=== PATIENT | female | born 1965 | race Hispanic/Latino ===

== ENCOUNTER 2017-11-30 14:32 | Emergency (ER) | payer BC ==
[2017-11-30] MEDS ORDERED: SODIUM CHLORIDE 0.9% 1000ML 1,000 ML IV ONE ×2 (14:52→15:45)
[2017-11-30 15:08] LABS: APPEARANCE,URINE Clear (CLEAR); BASOPHILS % (AUTO) 0.7 % (0.0-5.0); BILIRUBIN,URINE Negative (NEGATIVE); COLOR,URINE Yellow (YELLOW); EOSINOPHILS % (AUTO) 2.2 % (0.0-8.0); GLUCOSE, URINE (UA) >=1000 mg/dL (NEGATIVE); HEMATOCRIT 40.5 % (36-48); KETONES,URINE Negative (NEGATIVE); LEUKOCYTE ESTERASE ,URINE Negative (NEGATIVE); LYMPHOCYTES % (AUTO) 35.3 % (21.0-51.0); MEAN CORPUSCULAR HEMOGLOBIN 32.8 pg (27.0-33.0); MEAN CORPUSCULAR HGB CONC 35.4 g/dL (32.0-36.0); MEAN CORPUSCULAR VOLUME 92.7 fL (79-99); MONOCYTES % (AUTO) 5.3 % (3.0-13.0); NEUTROPHILS % (AUTO) 56.5 % (40.0-77.0); NITRATE,URINE Negative (NEGATIVE); OCCULT BLOOD,URINE Negative (NEGATIVE); PH,URINE 5.5 (5.0-8.0); PLATELET COUNT (AUTO) 235 K/uL (130-400); PROTEIN,URINE Negative (NEGATIVE); RED BLOOD CELL COUNT(AUTO) 4.37 MIL/uL (4.00-5.50); RED CELL DISTRIBUTION WIDTH 12.9 % (11.0-15.5); WHITE BLOOD COUNT (AUTO) 10.6 K/uL (4.8-10.8)
[2017-11-30 15:25] LABS: ALBUMIN 3.2 g/dL (3.5-5.0); BILIRUBIN,TOTAL 0.4 mg/dL (0.2-1.0); CREATININE 0.9 mg/dL (0.5-1.5); POTASSIUM 4.3 mmol/L (3.5-5.1); TOTAL PROTEIN, SERUM 7.3 g/dL (6.0-8.3)
[2017-11-30 15:51] LABS: BACTERIA,URINE Rare /HPF (None Seen); RBC,URINE 0-1 /HPF (0-1); SQUAMOUS EPITHELIAL CELL,UR Few /HPF (0-2); WBC,URINE 0-1 /HPF (0-1)
== END 2017-11-30 17:46 | disposition home or self-care (01) ==
LOC: EDH 14:32
DX: E11.65 Type 2 diabetes mellitus with hyperglycemia (principal); Z90.49 Acquired absence of other specified parts of digestive tract; Z98.890 Other specified postprocedural states; Z72.0 Tobacco use
CPT/HCPCS: 36415; 80053; 81001; 82550; 82948 ×2; 84484; 85025; 93005; 96360; 96361; 99285; J7030 ×2

== ENCOUNTER 2018-06-03 22:51 | Emergency (ER) | payer BC ==
[2018-06-03] MEDS ORDERED: ONDANSETRON HCL 4 MG/2 ML VIAL ONE (23:54)
[2018-06-03] MEDS ORDERED: SODIUM CHLORIDE 0.9% 1000ML 1,000 ML IV ONE (23:54)
[2018-06-03] MEDS ORDERED: MORPHINE SULFATE 4 MG/1ML SYG ONE (23:54)
[2018-06-03 23:59] LABS: BASOPHILS % (AUTO) 1.3 % (0.0-5.0); EOSINOPHILS % (AUTO) 2.2 % (0.0-8.0); MEAN CORPUSCULAR HEMOGLOBIN 31.7 pg (27.0-33.0); MEAN CORPUSCULAR HGB CONC 33.7 g/dL (32.0-36.0); MONOCYTES % (AUTO) 7.5 % (3.0-13.0); PLATELET COUNT (AUTO) 238 K/uL (130-400); RED BLOOD CELL COUNT(AUTO) 4.26 MIL/uL (4.00-5.50); RED CELL DISTRIBUTION WIDTH 13.2 % (11.0-15.5)
[2018-06-04 00:01] LABS: APPEARANCE,URINE Clear (CLEAR); BILIRUBIN,URINE Negative (NEGATIVE); COLOR,URINE Yellow (YELLOW); GLUCOSE, URINE (UA) >=1000 mg/dL (NEGATIVE); KETONES,URINE Negative (NEGATIVE); LEUKOCYTE ESTERASE ,URINE Negative (NEGATIVE); NITRATE,URINE Negative (NEGATIVE); OCCULT BLOOD,URINE Negative (NEGATIVE); PH,URINE 5.5 (5.0-8.0); PROTEIN,URINE Negative (NEGATIVE); UROBILINOGEN,URINE 0.2 mg/dL (0.2-1.0)
[2018-06-04] MEDS ORDERED: IOHEXOL-350 75 ML VIAL IV ONE (00:07)
[2018-06-04 00:10] LABS: BACTERIA,URINE None Seen /HPF (None Seen); RBC,URINE None Seen /HPF (0-1); SQUAMOUS EPITHELIAL CELL,UR Rare /HPF (0-2); WBC,URINE None Seen /HPF (0-1); YEAST,URINE BUDDING None Seen /HPF (None Seen)
[2018-06-04 00:15] LABS: ALBUMIN 3.6 g/dL (3.5-5.0); BILIRUBIN,TOTAL 0.6 mg/dL (0.2-1.0); CREATININE 0.9 mg/dL (0.5-1.5); TOTAL PROTEIN, SERUM 7.9 g/dL (6.0-8.3)
[2018-06-04] MEDS ORDERED: INSULIN HUMULIN R 100 UNIT/ML 3ML ONE (01:17)
== END 2018-06-04 02:40 | disposition home or self-care (01) ==
LOC: EDH 22:51
DX: R10.84 Generalized abdominal pain (principal); E11.65 Type 2 diabetes mellitus with hyperglycemia; Z90.49 Acquired absence of other specified parts of digestive tract; Z79.84 Long term (current) use of oral hypoglycemic drugs; Z98.890 Other specified postprocedural states; Z72.0 Tobacco use
CPT/HCPCS: 36415; 74177; 80053; 81001; 82948; 83690; 84484; 85025; 93005; 96361; 96374; 96375; 99285; J1815; J2270; J2405; J7030; Q9967

== ENCOUNTER 2018-07-29 13:50 | Emergency (ER) | payer BC | END 2018-07-29 15:00 | disposition home or self-care (01) | LOC: EDH 13:50 | DX: S83.91XA Sprain of unspecified site of right knee, initial encounter (principal); E11.9 Type 2 diabetes mellitus without complications; Z90.49 Acquired absence of other specified parts of digestive tract; Z72.0 Tobacco use; X50.1XXA Overexertion from prolonged static or awkward postures, initial encounter; Y93.01 Activity, walking, marching and hiking; Y92.89 Other specified places as the place of occurrence of the external cause; Y99.8 Other external cause status | CPT/HCPCS: 73562 ==

== ENCOUNTER 2018-09-17 13:37 | Emergency (ER) | payer BC ==
[2018-09-17] MEDS ORDERED: METHYLPREDNISOLONE SOD SUCC 125MG/2ML VIAL ONE (14:54)
[2018-09-17 14:59] LABS: BASOPHILS % (AUTO) 0.9 % (0.0-5.0); HEMATOCRIT 39.4 % (36-48); LYMPHOCYTES % (AUTO) 30.4 % (21.0-51.0); MEAN CORPUSCULAR HGB CONC 33.2 g/dL (32.0-36.0); MEAN CORPUSCULAR VOLUME 93.5 fL (79-99); MONOCYTES % (AUTO) 5.5 % (3.0-13.0); NEUTROPHILS % (AUTO) 60.2 % (40.0-77.0); PLATELET COUNT (AUTO) 273 K/uL (130-400); RED BLOOD CELL COUNT(AUTO) 4.21 MIL/uL (4.00-5.50); RED CELL DISTRIBUTION WIDTH 12.9 % (11.0-15.5); WHITE BLOOD COUNT (AUTO) 10.3 K/uL (4.8-10.8)
[2018-09-17] MEDS ORDERED: IPRATROPIUM/ALBUTEROL SULFATE 3 ML SOLUTION IH ONE (15:09)
[2018-09-17 15:10] LABS: CREATININE 0.8 mg/dL (0.5-1.5); POTASSIUM 4.4 mmol/L (3.5-5.1)
[2018-09-17 15:14] LABS: ALBUMIN 3.5 g/dL (3.5-5.0); BILIRUBIN,TOTAL 0.8 mg/dL (0.2-1.0); TOTAL PROTEIN, SERUM 7.4 g/dL (6.0-8.3)
[2018-09-17 15:15] LABS: APPEARANCE,URINE Clear (CLEAR); BILIRUBIN,URINE Negative (NEGATIVE); COLOR,URINE Yellow (YELLOW); GLUCOSE, URINE (UA) Negative (NEGATIVE); KETONES,URINE Negative (NEGATIVE); LEUKOCYTE ESTERASE ,URINE Negative (NEGATIVE); NITRATE,URINE Negative (NEGATIVE); OCCULT BLOOD,URINE Negative (NEGATIVE); PH,URINE 5.5 (5.0-8.0); PROTEIN,URINE Negative (NEGATIVE)
== END 2018-09-17 16:42 | disposition home or self-care (01) ==
LOC: EDH 13:37
DX: J40 Bronchitis, not specified as acute or chronic (principal); R10.11 Right upper quadrant pain; E11.9 Type 2 diabetes mellitus without complications; Z87.891 Personal history of nicotine dependence
CPT/HCPCS: 36415; 71046; 80053; 81003; 83690; 85025; 93005; 94640; 96372; 99285; J2930

== ENCOUNTER 2019-04-01 14:44 | Inpatient (IN) | payer BC ==
[~2019-04-01] VITALS: Ht 154.9 cm; Wt 86.2 kg
[2019-04-01] MEDS ORDERED: SODIUM CHLORIDE 0.9% 1000ML 1,000 ML IV ONE ×2 (14:52→16:08)
[2019-04-01] MEDS ORDERED: ONDANSETRON HCL 4 MG/2 ML VIAL ONE ×2 (14:52→17:06)
[2019-04-01 15:13] LABS: BASOPHILS % (AUTO) 0.9 % (0.0-5.0); EOSINOPHILS % (AUTO) 1.3 % (0.0-8.0); HEMATOCRIT 44.9 % (36-48); LYMPHOCYTES % (AUTO) 19.6 % (21.0-51.0); MEAN CORPUSCULAR HEMOGLOBIN 30.8 pg (27.0-33.0); MEAN CORPUSCULAR HGB CONC 33.6 g/dL (32.0-36.0); MEAN CORPUSCULAR VOLUME 91.5 fL (79-99); MONOCYTES % (AUTO) 6.2 % (3.0-13.0); PLATELET COUNT (AUTO) 245 K/uL (130-400); RED BLOOD CELL COUNT(AUTO) 4.91 MIL/uL (4.00-5.50); RED CELL DISTRIBUTION WIDTH 13.1 % (11.0-15.5); WHITE BLOOD COUNT (AUTO) 16.1 K/uL (4.8-10.8)
[2019-04-01] MEDS ORDERED: KETOROLAC TROMETHAMINE 30MG/ML ONE (15:14)
[2019-04-01 15:37] LABS: ALBUMIN 2.9 g/dL (3.5-5.0); BILIRUBIN,TOTAL 0.7 mg/dL (0.2-1.0); CREATININE 0.9 mg/dL (0.5-1.5); POTASSIUM 3.6 mmol/L (3.5-5.1); TOTAL PROTEIN, SERUM 5.9 g/dL (6.0-8.3)
[2019-04-01 15:52] LABS: APPEARANCE,URINE Clear (CLEAR); BILIRUBIN,URINE Negative (NEGATIVE); COLOR,URINE Yellow (YELLOW); GLUCOSE, URINE (UA) >=1000 mg/dL (NEGATIVE); KETONES,URINE 15 mg/dL (NEGATIVE); LEUKOCYTE ESTERASE ,URINE Negative (NEGATIVE); NITRATE,URINE Positive (NEGATIVE); OCCULT BLOOD,URINE Negative (NEGATIVE); PROTEIN,URINE Negative (NEGATIVE)
[2019-04-01 16:00] LABS: AMPHET/METH SCREEN,URINE NEGATIVE (NEGATIVE); BARBITURATE SCREEN, URINE NEGATIVE (NEGATIVE); BENZODIAZEPINES SCREEN,URINE NEGATIVE (NEGATIVE); CANNABINOID SCREEN,URINE NEGATIVE (NEGATIVE); COCAINE SCREEN,URINE NEGATIVE (NEGATIVE); OPIATE SCREEN,URINE NEGATIVE (NEGATIVE); PHENCYCLIDINE SCREEN,URINE NEGATIVE (NEGATIVE)
[2019-04-01 16:07] LABS: BACTERIA,URINE Moderate /HPF (None Seen); MUCUS,URINE Few LPF (None Seen)
[2019-04-01] MEDS ORDERED: MORPHINE SULFATE 4 MG/1ML SYG ONE (16:57)
[2019-04-01] MEDS ORDERED: CEFTRIAXONE SODIUM 1 GM ONE (21:05)
[2019-04-01 23:00] VITALS: BP 157/75
--- NOTE | 2019-04-01 23:00 | NUR ---
ADMIT ADMITTED TO ROOM 314, AAOX3. CLAIMS OF ABDOMINAL PAINS BUT IS INTERMITTENT. ADMISSION CARE DONE. ADMISSION DATA BASE COMPLETED. PLACED IN BED COMFORTABLY. PLACED NPO. ORIENTED TO ROOM AND UNIT. IN FOR MORE CARE AND MANAGEMENT. Addendum: 04/01/19 at 9945 by ESTRELLITA WILLIAMSON RN RN Amended: Links added.
[2019-04-01] MEDS: SODIUM CHLORIDE 0.9% 1000ML 1,000 ML IV SCH (23:41)
[2019-04-01] MEDS ORDERED: MORPHINE SULFATE 2 MG/ML 1ML SYG IV PRN (23:45)
[2019-04-01] MEDS ORDERED: MORPHINE SULFATE 4 MG/1ML SYG IV PRN (23:45)
[2019-04-02] MEDS ORDERED: ONDANSETRON HCL 4 MG/2 ML VIAL ONE (00:18)
[2019-04-02] MEDS ORDERED: INSULIN HUMULIN R 100 UNIT/ML 3ML ONE (00:19)
[2019-04-02] MEDS ORDERED: MORPHINE SULFATE 4 MG/1ML SYG ONE (00:19)
[2019-04-02] MEDS ORDERED: SODIUM CHLORIDE 0.9% 1000ML 1,000 ML IV ONE (00:20)
--- NOTE | 2019-04-02 00:25 | NUR ---
EMESIS PT HAD EPISODE OF EMESIS AND CLAIMS OF ABDOMINAL PAINS. ZOFRAN AND MORPHINE IV ADMINISTERED. INSULIN SQ GIVEN TO COVER BLOOD [id number]. STARTED ON IVF OF NS REGULATED AT 100CC/HR. SECURITY REPRESENTATIVE STEEL WELDER FOR HOSPITALIST, KM, MADE AWARE OF PT'S INTOLERANCE TO FOOD AND NEW ORDERS RECEIVED. PLACED PT NPO, INSTRUCTED PT AND FAMILY. VERBALIZES UNDERSTANDING. WILL MONITOR PT.
--- NOTE | 2019-04-02 02:00 | NUR ---
ROUNDS PT RESTING WELL, FAIRLY ASLEEP WITH RESPIRATIONS EVEN AND UNLABORED. NO DISTRESS NOTED. KEPT RESTED AND COMFORTABLE. SPOUSE ASLEEP AT BEDSIDE. CALL LIGHT WITHIN REACH. WILL MONITOR PT.
[2019-04-02 04:00] VITALS: BP 128/61
[2019-04-02 05:00] LABS: BASOPHILS % (AUTO) 0.7 % (0.0-5.0); HEMATOCRIT 40.4 % (36-48); LYMPHOCYTES % (AUTO) 7.5 % (21.0-51.0); MEAN CORPUSCULAR HEMOGLOBIN 31.1 pg (27.0-33.0); MEAN CORPUSCULAR HGB CONC 33.2 g/dL (32.0-36.0); MEAN CORPUSCULAR VOLUME 93.7 fL (79-99); MONOCYTES % (AUTO) 5.5 % (3.0-13.0); NEUTROPHILS % (AUTO) 86.3 % (40.0-77.0); PLATELET COUNT (AUTO) 202 K/uL (130-400); RED BLOOD CELL COUNT(AUTO) 4.32 MIL/uL (4.00-5.50); RED CELL DISTRIBUTION WIDTH 13.3 % (11.0-15.5); WHITE BLOOD COUNT (AUTO) 15.9 K/uL (4.8-10.8)
[2019-04-02 05:31] LABS: MAGNESIUM 1.8 mg/dL (1.80-2.40); POTASSIUM 4.8 mmol/L (3.5-5.1)
[2019-04-02] MEDS: INSULIN HUMULIN R 100 UNIT/ML 3ML SQ SCH ×3 (05:55→17:48)
[2019-04-02] MEDS ORDERED: INSULIN HUMULIN R 100 UNIT/ML 3ML SQ SCH (07:30)
--- NOTE | 2019-04-02 07:40 | NUR ---
REPORT ENDORSED PT TO AM SHIFT NURSEMARÍA. NURSES'S ROUNDS DONE. FOR MORE CARE AND MANAGEMENT.
[2019-04-02 08:00] VITALS: BP 128/67
[2019-04-02] MEDS: FAMOTIDINE/PF 20 MG/2 ML VIAL IV SCH ×2 (08:51→20:44)
[2019-04-02] MEDS: ENOXAPARIN SODIUM 30 MG/0.3 ML SQ SCH (08:53)
[2019-04-02] MEDS ORDERED: HYDRALAZINE HCL 20 MG/ML VIAL IV PRN (09:45)
[2019-04-02] MEDS: CEFTRIAXONE SODIUM 1 GM IVP SCH (09:58)
[2019-04-02] MEDS: SODIUM CHLORIDE 0.9% 1000ML 1,000 ML IV SCH ×4 (09:59→23:02)
--- NOTE | 2019-04-02 11:35 | NUR ---
RD Notification Primary Diagnosis: Acute Pancreatitis. Pt with a medical history of DM, HTN. BMI: 35.9; classified as Grade II obesity. Pt currently NPO. Pt complains that she is hungry during time of interview and says she has not eaten anything in the past 2 days, she has also been throwing up constantly and has reoccurring pain. Skin: intact with no edema. LBM: 04/01. Meds: Lovenox, Pepcid, Humulin R, Zofran. Labs: WBC 16, BG 351, Amylase 869, Lipase 4949, Alb 2.9. RD Recommends to continue NPO; advance as tolerated when medically feasible to clear liquids. RD provided pt with education regarding Pancreatitis Nutrition Therapy and Type 2 Diabetes Nutrition and Diet. Pt asked questions, RD answered and pt verbalized understanding. Pt was encouraged to reach out if she had any other questions regarding her diet. Please notify RD if any other nutritional concerns arise, thank you. Addendum: 04/02/19 at [address] Amended: Links added.
--- NOTE | 2019-04-02 11:46 | NUR ---
Diet Education RD provided pt with education regarding Pancreatitis Nutrition Therapy and Type 2 Diabetes Nutrition and Diet. Pt asked questions, RD answered and pt verbalized understanding. Pt was encouraged to reach out if she had any other questions regarding her diet. KATHY will continue to monitor. Addendum: 04/02/19 at [address] Amended: Links added.
[2019-04-02 12:00] VITALS: BP 127/72
--- NOTE | 2019-04-02 14:00 | NUR ---
INITIAL Met w pt and spoues for dc planning, Pt is employed, active, no dme, indp of adls, and drives; here for pancreatitis, struggles with weight/sugars, expresses frustration. diet education and diabetes self management clinic discsicussed; info provided. CM to follow.. pt sttes wants bariatric surgery but pmd states not heavy enough. adivsed her to clal her insruacne to find out the criteria for her insurance Addendum: 04/03/19 at 1053 by TIFFANIE PEÑALOZA RN CM Amended: Links added.
[2019-04-02 16:00] VITALS: BP 121/67
[2019-04-02 20:00] VITALS: BP 117/70
--- NOTE | 2019-04-02 20:45 | NUR ---
MEDS PT RESTING IN BED. NO COMPLAINTS VERBALIZED. DUE MEDS AND NEW IV BAG ADMINISTERED. KEPT NPO. KEPT RESTED AND COMFORTABLE. CALL LIGHT WITHIN REACH. WILL MONITOR PT. Addendum: 04/03/19 at 0414 by ESTRELLITA WILLIAMSON RN RN Amended: Links added.
[2019-04-03 00:43] VITALS: BP 107/53
--- NOTE | 2019-04-03 02:00 | NUR ---
ROUNDS PT FAIRLY ASLEEP WITH RESPIRATIONS EVEN AND UNLABORED. NO NOTED DISTRESS. KEPT UNDISTURBED FOR NOW.WILL MONITOR PT.
[2019-04-03] MEDS: SODIUM CHLORIDE 0.9% 1000ML 1,000 ML IV SCH ×3 (03:55→21:02)
[2019-04-03 04:00] VITALS: BP 115/52
[2019-04-03 05:07] LABS: BASOPHILS % (AUTO) 0.2 % (0.0-5.0); EOSINOPHILS % (AUTO) 0.1 % (0.0-8.0); HEMATOCRIT 36.2 % (36-48); LYMPHOCYTES % (AUTO) 7.8 % (21.0-51.0); MEAN CORPUSCULAR HEMOGLOBIN 31.3 pg (27.0-33.0); MEAN CORPUSCULAR HGB CONC 33.9 g/dL (32.0-36.0); MEAN CORPUSCULAR VOLUME 92.3 fL (79-99); MONOCYTES % (AUTO) 7.8 % (3.0-13.0); NEUTROPHILS % (AUTO) 84.1 % (40.0-77.0); PLATELET COUNT (AUTO) 200 K/uL (130-400); RED BLOOD CELL COUNT(AUTO) 3.92 MIL/uL (4.00-5.50); RED CELL DISTRIBUTION WIDTH 13.5 % (11.0-15.5); WHITE BLOOD COUNT (AUTO) 17.4 K/uL (4.8-10.8)
[2019-04-03 05:24] LABS: ALBUMIN 2.1 g/dL (3.5-5.0); BILIRUBIN,TOTAL 0.8 mg/dL (0.2-1.0); CREATININE 0.6 mg/dL (0.5-1.5); POTASSIUM 3.9 mmol/L (3.5-5.1); TOTAL PROTEIN, SERUM 5.2 g/dL (6.0-8.3)
[2019-04-03] MEDS: ONDANSETRON HCL 4 MG/2 ML VIAL IV PRN ×2 (06:12→21:29)
[2019-04-03] MEDS: INSULIN HUMULIN R 100 UNIT/ML 3ML SQ SCH ×4 (06:15→21:04)
--- NOTE | 2019-04-03 07:30 | NUR ---
REPORT REPORT GIVEN TO AM NURSEMARÍA. ENDORSING PT FOR MORE CARE AND MANAGEMENT.
[2019-04-03 08:00] VITALS: BP 132/69
[2019-04-03] MEDS: CEFTRIAXONE SODIUM 1 GM IVP SCH (09:19)
[2019-04-03] MEDS: LEVOFLOXACIN 500 MG/D5W 100 ML 100 ML IV SCH (09:19)
[2019-04-03] MEDS: FAMOTIDINE/PF 20 MG/2 ML VIAL IV SCH ×2 (09:20→21:02)
[2019-04-03] MEDS: ENOXAPARIN SODIUM 30 MG/0.3 ML SQ SCH (09:25)
[2019-04-03 12:00] VITALS: BP 130/68
--- NOTE | 2019-04-03 15:37 | NUR ---
RD Follow up Note Pt reports some Nausea and vomiting with medications this AM. Vomiting resolved as per Pt. Pt with improving appetite with PO intake at 75%. RD to continue to monitor. Rec to advance as tolerated to 60gm CCD, Low fat diet when medically feasible. Rec to add Ensure Clear with meals. Pt monitored labs: Glu 240, Ca 8.0, ALT 10, Alb 2.1, Lipase 623. RD to continue to monitor. Please notify RD as additional nutrition concerns arise. Thank you. Addendum: 04/03/19 at [address] Amended: Links added.
[2019-04-03 16:00] VITALS: BP 122/57
[2019-04-03] MEDS ORDERED: INSULIN GLARGINE 100 UNITS/ML 10 ML VIAL SQ ONE (16:15)
[2019-04-03 20:27] VITALS: BP 108/54
[2019-04-03] MEDS ORDERED: INSULIN GLARGINE 100 UNITS/ML 10 ML VIAL SQ SCH (21:00)
--- NOTE | 2019-04-03 21:05 | NUR ---
MEDS SHIFT ASSESSMENT DONE, PLEASE REFER TO CHART. DUE MEDS ADMINISTERED, TOLERATED WELL. KEPT RESTED AND COMFORTABLE. CALL LIGHT WITHIN REACH. WILL MONITOR PT. FAMILY AT BEDSIDE. Addendum: 04/03/19 at 2323 by ESTRELLITA WILLIAMSON RN RN Amended: Links added.
[2019-04-04] VITALS: BP 132/68
--- NOTE | 2019-04-04 02:00 | NUR ---
ROUNDS PT RESTING WELL, FAIRLY ASLEEP. NO DISTRESS NOTED. KEPT UNDISTURBED FOR NOW. WILL MONITOR PT.
[2019-04-04 03:52] VITALS: BP 110/56
[2019-04-04 05:49] LABS: BASOPHILS % (AUTO) 0.2 % (0.0-5.0); EOSINOPHILS % (AUTO) 0.5 % (0.0-8.0); HEMATOCRIT 33.9 % (36-48); LYMPHOCYTES % (AUTO) 8.9 % (21.0-51.0); MEAN CORPUSCULAR HEMOGLOBIN 30.9 pg (27.0-33.0); MEAN CORPUSCULAR HGB CONC 33.3 g/dL (32.0-36.0); MEAN CORPUSCULAR VOLUME 92.8 fL (79-99); MONOCYTES % (AUTO) 9.1 % (3.0-13.0); NEUTROPHILS % (AUTO) 81.3 % (40.0-77.0); PLATELET COUNT (AUTO) 183 K/uL (130-400); RED BLOOD CELL COUNT(AUTO) 3.66 MIL/uL (4.00-5.50); RED CELL DISTRIBUTION WIDTH 13.1 % (11.0-15.5)
[2019-04-04 06:03] LABS: CREATININE 0.7 mg/dL (0.5-1.5); POTASSIUM 3.5 mmol/L (3.5-5.1)
[2019-04-04] MEDS: INSULIN HUMULIN R 100 UNIT/ML 3ML SQ SCH ×4 (06:15→21:00)
[2019-04-04 08:00] VITALS: BP 141/71
[2019-04-04] MEDS: LEVOFLOXACIN 500 MG/D5W 100 ML 100 ML IV SCH (09:07)
[2019-04-04] MEDS: FAMOTIDINE/PF 20 MG/2 ML VIAL IV SCH ×2 (09:07→22:17)
[2019-04-04] MEDS: ENOXAPARIN SODIUM 30 MG/0.3 ML SQ SCH (09:09)
[2019-04-04] MEDS: CEFTRIAXONE SODIUM 1 GM IVP SCH (09:10)
[2019-04-04] MEDS: SODIUM CHLORIDE 0.9% 1000ML 1,000 ML IV SCH ×2 (11:12→23:30)
[2019-04-04 11:46] VITALS: BP 135/71
[2019-04-04 15:41] VITALS: BP 138/73
--- NOTE | 2019-04-04 16:30 | NUR ---
Taking over pt's care. Stated that there is still some pain present. visiting at bedside.
[2019-04-04] MEDS ORDERED: PHARMACY COMMUNICATION MISC SCH (17:45)
[2019-04-04] MEDS: ZOSYN 3.375GM+NS 50ML 50 ML IV SCH (18:00)
[2019-04-04 20:00] VITALS: BP 127/48
[2019-04-04] MEDS ORDERED: SITA100T12 PO (22:27)
[2019-04-04] MEDS ORDERED: PIOG30TA70 PO (22:27)
[2019-04-04] MEDS ORDERED: GLIM4TAB3 PO (22:27)
[2019-04-04] MEDS ORDERED: ATOR10TA69 PO (22:27)
[2019-04-04] MEDS ORDERED: METF-446 PO (22:27)
[2019-04-04] MEDS: INSULIN GLARGINE 100 UNITS/ML 10 ML VIAL SQ SCH (22:35)
[2019-04-05] VITALS: BP 119/59
[2019-04-05] MEDS: ZOSYN 3.375GM+NS 50ML 50 ML IV SCH ×2 (03:01→10:00)
[2019-04-05 04:00] VITALS: BP 135/78
[2019-04-05 04:58] LABS: BASOPHILS % (AUTO) 0.3 % (0.0-5.0); EOSINOPHILS % (AUTO) 0.6 % (0.0-8.0); HEMATOCRIT 32.9 % (36-48); LYMPHOCYTES % (AUTO) 7.9 % (21.0-51.0); MEAN CORPUSCULAR HEMOGLOBIN 31.2 pg (27.0-33.0); MEAN CORPUSCULAR HGB CONC 33.7 g/dL (32.0-36.0); MEAN CORPUSCULAR VOLUME 92.6 fL (79-99); NEUTROPHILS % (AUTO) 81.2 % (40.0-77.0); PLATELET COUNT (AUTO) 216 K/uL (130-400); RED BLOOD CELL COUNT(AUTO) 3.55 MIL/uL (4.00-5.50); RED CELL DISTRIBUTION WIDTH 13.3 % (11.0-15.5); WHITE BLOOD COUNT (AUTO) 15.8 K/uL (4.8-10.8)
[2019-04-05 05:05] LABS: CREATININE 0.5 mg/dL (0.5-1.5); POTASSIUM 3.9 mmol/L (3.5-5.1)
[2019-04-05 08:03] VITALS: BP 124/58
[2019-04-05] MEDS: INSULIN HUMULIN R 100 UNIT/ML 3ML SQ SCH ×2 (08:12→11:59)
[2019-04-05] MEDS: INSULIN GLARGINE 100 UNITS/ML 10 ML VIAL SQ SCH (09:09)
[2019-04-05] MEDS: LEVOFLOXACIN 500 MG/D5W 100 ML 100 ML IV SCH (09:26)
[2019-04-05] MEDS: FAMOTIDINE/PF 20 MG/2 ML VIAL IV SCH (09:26)
[2019-04-05] MEDS: ENOXAPARIN SODIUM 30 MG/0.3 ML SQ SCH (09:27)
[2019-04-05] MEDS ORDERED: LEVOFLOXACIN 500 MG TABLET PO SCH (10:15)
[2019-04-05] MEDS ORDERED: ATOR10TA69 PO (10:26)
[2019-04-05] MEDS ORDERED: LEVO500T89 PO (10:27)
[2019-04-05 11:15] VITALS: BP 136/70
--- NOTE | 2019-04-05 15:10 | NUR ---
DISCHARGE PATIENT GIVEN DISCHARGE INSTRUCTIONS VIA TEACH BACK. 20G PIV TO RIGHT HAND DISCONTINUED, TIP INTACT. RX GIVE FOR LEVOFLOXACIN 500MG 1 TAB PO QD X 5 DAYS AND ATORVASTATIN 20MG QD. FOLLOW UP APPOINTMENT MADE WITH DR. JUAREZ. PATIENT STABLE AT THIS TIME. PATIENT WHEELED TO LOBBY BY ABDIRAHMAN BLACK ACCOMPANIED BY PATIENT'S SPOUSE.
== END 2019-04-05 15:16 | disposition home or self-care (01) | DRG 439 ==
LOC: EDH 14:44 → EDHIP 19:10 → 3CH 22:36
PROVIDERS: ADMIT Internal Medicine; ATTEND Internal Medicine
DX: K85.90 Acute pancreatitis without necrosis or infection, unspecified (principal); N39.0 Urinary tract infection, site not specified; K86.1 Other chronic pancreatitis; B96.20 Unspecified Escherichia coli [E. coli] as the cause of diseases classified elsewhere; R74.8 Abnormal levels of other serum enzymes; E66.01 Morbid (severe) obesity due to excess calories; E11.65 Type 2 diabetes mellitus with hyperglycemia; I10 Essential (primary) hypertension; I72.8 Aneurysm of other specified arteries; J45.909 Unspecified asthma, uncomplicated; Z68.36 Body mass index [BMI] 36.0-36.9, adult; Z91.19 Patient's noncompliance with other medical treatment and regimen; Z82.5 Family history of asthma and other chronic lower respiratory diseases; Z82.49 Family history of ischemic heart disease and other diseases of the circulatory system
CPT/HCPCS: 36415; 74176; 80048; 80053; 80061; 80305; 81001; 82150; 82947; 82948; 83690; 83735; 85025; 87077; 87088; 87186; 93005; G0378; J0696; J1650; J1815; J1885; J1956; J2270; J2405; J2543; J3490; J7030

== ENCOUNTER 2020-02-28 | Emergency (ER) | payer MEDICAID | END 2020-02-28 22:08 | disposition home or self-care (01) ==

== ENCOUNTER 2021-03-31 14:04 | Emergency (ER) | payer MEDICAID ==
[~2021-03-31] VITALS: Ht 154.9 cm; Wt 88.5 kg
[~2021-03-31 14:04] MED LIST: ATOR10TA69 PO; GLIM4TAB36 PO; LEVO500T89 PO; METF-446 PO; PIOG30TA70 PO; SITA100T12 PO
[2021-03-31 14:50] LABS: BASOPHILS % (AUTO) 0.4 % (0.0-5.0); EOSINOPHILS % (AUTO) 2.6 % (0.0-8.0); HEMATOCRIT 32.3 % (36-48); MEAN CORPUSCULAR HEMOGLOBIN 31.3 pg (27.0-33.0); MEAN CORPUSCULAR HGB CONC 32.2 g/dL (32.0-36.0); MEAN CORPUSCULAR VOLUME 97.3 fL (79-99); MONOCYTES % (AUTO) 7.7 % (3.0-13.0); NEUTROPHILS % (AUTO) 57.9 % (40.0-77.0); PLATELET COUNT (AUTO) 189 K/uL (130-400); RED BLOOD CELL COUNT(AUTO) 3.32 MIL/uL (4.00-5.50); RED CELL DISTRIBUTION WIDTH 13.8 % (11.0-15.5); WHITE BLOOD COUNT (AUTO) 8.1 K/uL (4.8-10.8)
[2021-03-31 15:03] LABS: CREATININE 0.8 mg/dL (0.5-1.5); POTASSIUM 4.1 mmol/L (3.5-5.1)
[2021-03-31 15:07] LABS: ALBUMIN 3.5 g/dL (3.5-5.0); BILIRUBIN,TOTAL 0.8 mg/dL (0.2-1.0); TOTAL PROTEIN, SERUM 6.9 g/dL (6.0-8.3)
[2021-03-31 15:19] LABS: APPEARANCE,URINE Clear (CLEAR); BILIRUBIN,URINE Negative (NEGATIVE); COLOR,URINE Yellow (YELLOW); GLUCOSE, URINE (UA) Negative (NEGATIVE); KETONES,URINE Negative (NEGATIVE); LEUKOCYTE ESTERASE ,URINE Small (NEGATIVE); NITRATE,URINE Negative (NEGATIVE); OCCULT BLOOD,URINE Negative (NEGATIVE); PH,URINE 6.5 (5.0-8.0); PROTEIN,URINE Negative (NEGATIVE)
[2021-03-31 15:35] LABS: BACTERIA,URINE Rare /HPF (None Seen); RBC,URINE 0-1 /HPF (0-1); SQUAMOUS EPITHELIAL CELL,UR Rare /HPF (0-2)
[2021-03-31] MEDS ORDERED: ONDA4TAB10 PO (16:54)
[2021-03-31 17:02] VITALS: BP 128/78
== END 2021-03-31 17:08 | disposition home or self-care (01) ==
LOC: EDH 14:04
DX: A08.4 Viral intestinal infection, unspecified (principal); I72.8 Aneurysm of other specified arteries; E11.65 Type 2 diabetes mellitus with hyperglycemia; E78.00 Pure hypercholesterolemia, unspecified; Z79.84 Long term (current) use of oral hypoglycemic drugs; Z79.899 Other long term (current) drug therapy; Z90.49 Acquired absence of other specified parts of digestive tract
CPT/HCPCS: 36415; 71045; 74176; 80053; 81001; 82150; 83690; 84484; 85025; 93005

== ENCOUNTER 2021-05-12 18:10 | Emergency (ER) | payer MEDICAID ==
[~2021-05-12] VITALS: Ht 154.9 cm; Wt 83.9 kg
[~2021-05-12 18:10] MED LIST changes: +ONDA4TAB10 PO
[2021-05-12] MEDS ORDERED: ACETAMINOPHEN WITH CODEINE 1 TAB TAB PO ONE (19:00)
[2021-05-12] MEDS ORDERED: D-ME1POW16 PO (19:59)
[2021-05-12 20:10] VITALS: BP 128/78
== END 2021-05-12 20:10 | disposition home or self-care (01) ==
LOC: EDH 18:10
DX: B34.9 Viral infection, unspecified (principal); Z20.822 Contact with and (suspected) exposure to COVID-19
CPT/HCPCS: 71045; 87635; 87804 ×2; 87880; 99284; C9803

== ENCOUNTER 2021-08-08 10:26 | Emergency (ER) | payer BC, MEDICARE ==
[~2021-08-08] VITALS: Ht 154.9 cm; Wt 81.6 kg
[~2021-08-08 10:26] MED LIST changes: +D-ME1POW16 PO; -LEVO500T89 PO; +LEVO500T90 PO
[2021-08-08] MEDS ORDERED: DEXAMETHASONE SOD PHOSPHATE 4 MG/ML 1ML VIAL IM SCH (11:00)
[2021-08-08] MEDS ORDERED: P-EP-94 PO (11:05)
[2021-08-08 11:37] VITALS: BP 119/57
== END 2021-08-08 11:38 | disposition home or self-care (01) ==
LOC: EDH 10:26
DX: S46.001A Unspecified injury of muscle(s) and tendon(s) of the rotator cuff of right shoulder, initial encounter (principal); J30.9 Allergic rhinitis, unspecified; E11.9 Type 2 diabetes mellitus without complications; Z79.52 Long term (current) use of systemic steroids; Z79.84 Long term (current) use of oral hypoglycemic drugs; Z79.899 Other long term (current) drug therapy; Z90.49 Acquired absence of other specified parts of digestive tract; X58.XXXA Exposure to other specified factors, initial encounter; Y93.89 Activity, other specified; Y92.89 Other specified places as the place of occurrence of the external cause; Y99.8 Other external cause status
CPT/HCPCS: 96372; 99284; J1100

== ENCOUNTER 2022-07-26 09:05 | Emergency (ER) | payer BC, MEDICAID ==
[~2022-07-26] VITALS: Ht 124.5 cm; Wt 90.7 kg
[~2022-07-26 09:05] MED LIST changes: +CEPH500B PO; +DICY20TA2 PO; +FAMO-136 PO; +LEVO-70 PO; -LEVO500T90 PO; +P-EP-94 PO
[2022-07-26 09:09] VITALS: BP 133/71
[2022-07-26] MEDS ORDERED: NAPR500T6 PO (11:51)
[2022-07-26] MEDS ORDERED: PRED20TA3 PO (11:51)
[2022-07-26] MEDS ORDERED: CYCL10TA16 PO (11:51)
[2022-07-26] MEDS ORDERED: PREDNISONE 20 MG TABLET PO SCH (12:00)
[2022-07-26] MEDS ORDERED: KETOROLAC 30MG VIAL (30MG/ML) IM SCH (12:00)
== END 2022-07-26 12:34 | disposition home or self-care (01) ==
LOC: EDH 09:05
DX: M54.42 Lumbago with sciatica, left side (principal); E11.9 Type 2 diabetes mellitus without complications; E66.9 Obesity, unspecified; Z68.43 Body mass index [BMI] 50.0-59.9, adult; Z90.49 Acquired absence of other specified parts of digestive tract; Z79.84 Long term (current) use of oral hypoglycemic drugs; Z79.52 Long term (current) use of systemic steroids; Z79.899 Other long term (current) drug therapy; Z88.5 Allergy status to narcotic agent
CPT/HCPCS: 99284; 96372; J1885

== ENCOUNTER 2023-01-14 08:55 | Emergency (ER) | payer BC, MEDICAID ==
[~2023-01-14] VITALS: Ht 154.9 cm; Wt 90.7 kg
[~2023-01-14 08:55] MED LIST changes: +CYCL10TA16 PO; +NAPR500T6 PO; +PRED20TA3 PO
[2023-01-14] MEDS ORDERED: IBUP-2070 PO (12:45)
[2023-01-14 13:00] VITALS: BP 144/60
== END 2023-01-14 13:02 | disposition home or self-care (01) ==
LOC: EDH 08:55
DX: S16.1XXA Strain of muscle, fascia and tendon at neck level, initial encounter (principal); S00.33XA Contusion of nose, initial encounter; S80.12XA Contusion of left lower leg, initial encounter; S80.11XA Contusion of right lower leg, initial encounter; E11.9 Type 2 diabetes mellitus without complications; Z88.5 Allergy status to narcotic agent; Z79.899 Other long term (current) drug therapy; Z90.49 Acquired absence of other specified parts of digestive tract; Y04.2XXA Assault by strike against or bumped into by another person, initial encounter; Y93.89 Activity, other specified; Y92.89 Other specified places as the place of occurrence of the external cause; Y99.8 Other external cause status
CPT/HCPCS: 70486; 72125

== ENCOUNTER 2023-08-18 13:10 | Emergency (ER) | payer BC, MEDICAID ==
[~2023-08-18] VITALS: Ht 154.9 cm; Wt 95.3 kg
[~2023-08-18 13:10] MED LIST changes: +IBUP-2070 PO
[2023-08-18 13:28] VITALS: PULSE 83
[2023-08-18 16:37] LABS: BASOPHILS # (AUTO) 0.03 K/uL (0.00-0.20); BASOPHILS % (AUTO) 0.4 % (0.0-5.0); EOSINOPHILS # (AUTO) 0.16 K/uL (0.00-0.70); EOSINOPHILS % (AUTO) 2.4 % (0.0-8.0); HEMATOCRIT 34.4 % (36-48); IMMATURE GRANULOCYTE ABSOLUTE 0.03 K/uL (0-1); LYMPHOCYTES # (AUTO) 2.1 K/uL (1.0-4.8); MEAN CORPUSCULAR HEMOGLOBIN 31.3 pg (27.0-33.0); MEAN CORPUSCULAR HGB CONC 33.1 g/dL (32.0-36.0); MEAN CORPUSCULAR VOLUME 94.5 fL (79-99); MONOCYTES # (AUTO) 0.8 K/uL (0.1-1.0); MONOCYTES % (AUTO) 11.4 % (3.0-13.0); NEUTROPHILS # (AUTO) 3.7 K/uL (1.8-7.7); NEUTROPHILS % (AUTO) 54.4 % (40.0-77.0); PLATELET COUNT (AUTO) 226 K/uL (130-400); RED BLOOD CELL COUNT(AUTO) 3.64 MIL/uL (4.00-5.50); RED CELL DISTRIBUTION WIDTH 14.4 % (11.0-15.5); WHITE BLOOD COUNT (AUTO) 6.8 K/uL (4.8-10.8)
[2023-08-18 16:45] LABS: POTASSIUM 4.3 mmol/L (3.5-5.1)
[2023-08-18 16:46] LABS: APPEARANCE,URINE CLOUDY (CLEAR); BILIRUBIN,URINE NEGATIVE (NEGATIVE); COLOR,URINE YELLOW (YELLOW); GLUCOSE, URINE (UA) NEGATIVE (NEGATIVE); KETONES,URINE NEGATIVE (NEGATIVE); LEUKOCYTE ESTERASE ,URINE 75 Leu/uL (NEGATIVE); NITRATE,URINE 2+ (NEGATIVE); OCCULT BLOOD,URINE NEGATIVE (NEGATIVE); PH,URINE 6.5 (5.0-8.0); PROTEIN,URINE 20 mg/dL (NEGATIVE); UROBILINOGEN,URINE 6 mg/dL (0.2-1.0)
[2023-08-18 16:53] LABS: ALBUMIN 3.5 g/dL (3.5-5.0); TOTAL PROTEIN, SERUM 7.3 g/dL (6.0-8.3)
[2023-08-18 16:57] LABS: SARS-CoV-2, RNA, NAAT NEGATIVE SARS CoV-2 (NEGATIVE)
[2023-08-18 16:59] LABS: RAPID GROUP A STREP negative (NEGATIVE)
[2023-08-18 17:04] LABS: ADD UA MICROSCOPIC YES
[2023-08-18 17:06] LABS: INFLUENZA TYPE A Negative For Type A (NEGATIVE); INFLUENZA TYPE B Negative For Type B (NEGATIVE)
[2023-08-18 17:17] LABS: BACTERIA,URINE RARE /HPF (None Seen); MUCUS,URINE RARE LPF (None Seen); SQUAMOUS EPITHELIAL CELL,UR RARE /HPF (0-2)
[2023-08-18 17:20] LABS: B-TYPE NATRIURETIC PEPTIDE 63 pg/mL (0-100)
[2023-08-18] MEDS ORDERED: CEPH500B PO (17:30)
[2023-08-18 18:02] VITALS: BP 131/75; RESP 18; O2SAT 99
== END 2023-08-18 18:06 | disposition home or self-care (01) ==
LOC: EDH 13:10
DX: N39.0 Urinary tract infection, site not specified (principal); E11.9 Type 2 diabetes mellitus without complications; E66.9 Obesity, unspecified; Z79.84 Long term (current) use of oral hypoglycemic drugs; Z79.899 Other long term (current) drug therapy; Z88.5 Allergy status to narcotic agent; Z90.49 Acquired absence of other specified parts of digestive tract; Z20.822 Contact with and (suspected) exposure to COVID-19
CPT/HCPCS: 99284; 71045; 87635; 84484; 80053; 83880; 85025; 87077; 87088; 87186; 87880; 87804 ×2; 81001; 36415; 93005; C9803

== ENCOUNTER 2024-10-21 06:10 | Emergency (ER) | payer BC, MEDICAID ==
[~2024-10-21] VITALS: Ht 152.4 cm; Wt 85.7 kg
[~2024-10-21 06:10] MED LIST changes: +NAPR-1506 PO; -NAPR500T6 PO; +ONDA-243 PO; -ONDA4TAB10 PO
--- NOTE | 2024-10-21 06:39 | ERN ---
General Chief Complaint: Flu Symptoms Stated Complaint: VOMITING, HEADACHE, BODY ACHES, CHILLS ONSET ELANA Time Seen by MD: 06:31 History of Present Illness Initial Comments 59-year-old female with a past medical history of diabetes comes in for evaluation of a flu. She has had a diarrhea cough for the last three weeks it it is not improved with [id number] medications. The discussing her con dition the patient mentioned that she has lost 60 lb in the last six months or so, she blames it on working too hard a lot sleeping well and poor eating habits. She feels like she is dehydrated as well. For her diabetes she just started taking goes up pick approximately two weeks ago. Allergies: Coded Allergies: codeine (Unverified Allergy, Unknown, 07/26/22) Home Meds Active Scripts Cephalexin Monohydrate (Keflex) 500 Mg Cap, 500 MG PO TID for 7 Days, #21 CAP Prov:MARCELA BURGER V [facility] 08/18/23 Ibuprofen (Ibuprofen) 600 Mg Tablet, 600 MG PO Q6H PRN for PAIN, #30 TAB 0 Refills Prov:CLAU LAST MD 01/14/23 Cyclobenzaprine HCl (Flexeril) 10 Mg Tab, 10 MG PO TID, #15 TAB Prov:JEANETTE HERNANDEZ [facility] 07/26/22 Prednisone (Prednisone) 20 Mg Tablet, 1 TAB PO AD for 6 Days, #14 TAB 0 Refills TAKE 1 TAB BY MOUTH THREE TIMES PER DAY X3 DAYS, THEN TAKE 1 TAB BY MOUTH TWICE A DAY X2 DAYS, THEN TAKE 1 TAB BY MOUTH ONCE A DAY X1 DAY. Prov:JEANETTE HERNANDEZ [facility] 07/26/22 Naproxen (Naproxen) 500 Mg Tablet.dr, 500 MG PO BIDPC, #15 TAB Prov:JEANETTE HERNANDEZ [facility] 07/26/22 Famotidine (Pepcid) 20 Mg Tablet, 20 MG PO BID, #60 TAB Prov:JANELLE CHRISITNA 09/27/21 Ondansetron (Ondansetron Odt) 4 Mg Tab.rapdis, 4 MG PO QIDP, #28 TAB Prov:JANELLE CHRISTINA 09/27/21 Dicyclomine HCl (Bentyl) 20 Mg Tab, 20 MG PO QIDP, #28 TAB Prov:JANELLE CHRISTINA 09/27/21 Cephalexin Monohydrate (Keflex) 500 Mg Cap, 500 MG PO TID for 7 Days, #21 CAP Prov:JANELLE CHRISTINA 09/27/21 Loratadine/Pseudoephedrine (Claritin-D 12 Hour Tablet) 1 Each Tab.er.12h, 1 EACH PO [id number] PRN for NASAL CONGESTION, #20 TAB 1 Refill Prov:FER HAYNES MD 08/08/21 D-Methorphan/PE/Acetaminophen (Theraflu Ms Severe Cold Pckt) 1 Each Powd.pack, 1 EACH PO QIDP, #20 PACK Prov:JANELLE CHRISTINA 05/12/21 Ondansetron (Ondansetron Odt) 4 Mg Tab.rapdis, 4 MG PO TID, #21 TAB Prov:JANELLE CHRISTINA 03/31/21 Levofloxacin (Levofloxacin) 500 Mg Tablet, 500 MG PO DAILY for 5 Days, TAB Prov:GISELLE MIN FERRY CAPTAIN 04/05/19 Atorvastatin Calcium (Atorvastatin Calcium) 10 Mg Tablet, 20 MG PO DAILY for 15 Days, TAB Prov:GISELLE MIN FERRY CAPTAIN 04/05/19 Reported Medications Metformin HCl (Metformin HCl) 1,000 Mg Tablet, 1000 MG PO BID, TAB 04/04/19 Pioglitazone HCl (Pioglitazone HCl) 30 Mg Tablet, 30 MG PO DAILY, TAB 04/04/19 Glimepiride (Glimepiride) 4 Mg Tablet, 4 MG PO DAILY, TAB 04/04/19 Sitagliptin Phosphate (Januvia) 100 Mg Tablet, 100 MG PO BID, TAB 04/04/19 Past Medical History Past Medical History: Diabetes-Type II Medical History Other: SINUS ISSUES, obesity Past Surgical History: Cholecystectomy, Other, Surgical History Other: NASAL SX, ORAL SX Social History Social History: Other Gastrointestinal/Abdominal: (+) nausea, (+) vomiting, (+) diarrhea Review of Systems: & the rest were negative. Physical Exam General Appearance: (+) mild distress Orientation: (+) alert, (+) oriented x 3 Head/Face Trauma: No Eye: bilateral eye normal inspection, bilateral eye PERRL, bilateral eye EOMI Ear, Nose, Throat: (+) hearing grossly normal, (+) normal ENT inspection, (+) moist mucous membraine Neck: (+) normal inspection, (+) supple, (+) full range of motion, (+) no JVD, (+) no bruit Respiratory: (+) chest non-tender, (+) lungs clear, (+) well ventilated Heart: (+) regular Vascular: (+) no edema, (+) normal peripheral pulse, (+) no JVD Gastrointestinal: (+) soft, (+) non-tender, (+) bowel sound present Extremities: (+) normal range of motion, (+) non-tender, (+) normal inspection Neurologic/Psychiatric: (+) normal speech, (+) no motor defecits Skin: (+) normal color, (+) warm/dry Skin Comment Mild tenting of the skin of the back of her hands Results Laboratory and Microbiology Lab and Micro Result Laboratory Tests Test 10/21/24 06:34 10/21/24 07:20 Influenza Type A Antigen Negative For Type A Influenza Type B Antigen Negative For Type B SARS-CoV-2, RNA, NAAT NEGATIVE SARS CoV-2 White Blood Count 8.1 K/uL (4.8-10.8) Red Blood Count 3.94 MIL/uL (4.00-5.50) L Hemoglobin 12.1 g/dL (12.0-16.0) Hematocrit 37.1 % (36-48) Mean Corpuscular Volume 94.2 fL (79-99) Mean Corpuscular Hemoglobin 30.7 pg (27.0-33.0) Mean Corpuscular Hemoglobin Concent 32.6 g/dL (32.0-36.0) Red Cell Distribution Width 12.8 % (11.0-15.5) Platelet Count 217 K/uL (130-400) Mean Platelet Volume 11.4 fL (7.5-10.5) H Immature Granulocyte % (Auto) 0.6 % (0-1) Neutrophils (%) (Auto) 68.5 % (40.0-77.0) Lymphocytes (%) (Auto) 21.9 % (21.0-51.0) Monocytes (%) (Auto) 6.8 % (3.0-13.0) Eosinophils (%) (Auto) 1.7 % (0.0-8.0) Basophils (%) (Auto) 0.5 % (0.0-5.0) Neutrophils # (Auto) 5.6 K/uL (1.8-7.7) Lymphocytes # (Auto) 1.8 K/uL (1.0-4.8) Monocytes # (Auto) 0.6 K/uL (0.1-1.0) Eosinophils # (Auto) 0.14 K/uL (0.00-0.70) Basophils # (Auto) 0.04 K/uL (0.00-0.20) Absolute Immature Granulocyte (auto 0.05 K/uL (0-1) Nucleated Red Blood Cells 0.0 % (0.0-0.19) Sodium Level 134 mmol/L (136-145) L Potassium Level 4.7 mmol/L (3.5-5.1) Chloride Level 102 mmol/L (101-111) Carbon Dioxide Level 28 mmol/L (21-32) Blood Urea Nitrogen 12 mg/dL (7-18) Creatinine 1.0 mg/dL (0.5-1.0) Glomerular Filtration Rate Calc 64 mL/min (>90) Random Glucose 422 mg/dL (70-105) *H Total Calcium 9.0 mg/dL (8.5-10.1) Total Bilirubin 0.7 mg/dL (0.2-1.0) Direct Bilirubin 0.1 mg/dL (0.0-0.3) Aspartate Amino Transf (AST/SGOT) 17 U/L (10-37) Alanine Aminotransferase (ALT/SGPT) 21 U/L (12-78) Alkaline Phosphatase 105 U/L (50-136) Total Protein 5.8 g/dL (6.0-8.3) L Albumin 3.0 g/dL (3.5-5.0) L Lipase 25 U/L (16-77) MDM The patient is here for concerns of her flu-like symptoms. We will certainly do viral swabs obtained a chest x-ray. I have concern about her weight loss over the last six months; however, lengthy it her review of systems or physical exam points to any particular region of cancer. Patient states that did she does smoke cigarettes so a chest x-ray would certainly be appropriate. I will do a C BC as well. CC: vomiting, ELIZONDO, body aches, chills Historian: patient Comorbidities: DM, cholecystectomy, Limitations by social determinates of health: none Ddx: flu, infection, dehydration, etc. VSS EKG: Sinus bradycardia, rate 40, normal axis, good R-wave progression, intervals stable. First-degree bundle-branch block. No STEMI. Labs (independently interpreted by me): normal CBC, what panel shows stable electrolytes, glucose 422, LFTs are normal. Lipase normal. Flu normal. CXR (independently interpreted by me ): No acute abnormalities, no cardiomegaly or focal infiltrates. CT abdomen and pelvis with contrast ( independently ordered and interpreted by me ): Minimal small bowel dilation suggestive of enteritis, calcifications of the pancreas. No surgical pathology other abnormalities. Patient was elevated glucose, no signs of DKA. There is no leukocytosis. Lipase is normal. No significant findings based on the workup. Clinically she was not appear to have a flare-up of pancreatitis. Very low suspicion for any life threats at this time. Possibly a viral URI or viral syndrome. She also recently started Ozempic, but she has not taken it in about two weeks and I suspect that the side effects with the worn off by now. Treatment in ED: 1 L normal saline, insulin IV Plan: We will DC with ondansetron prescription and recommend PCP follow up. REASON: vomiting, weight loss ORDERING PHYSICIAN: TAMI PURCELL DO PROCEDURE: ABD PEL W - CT ABDOMEN/PELVIS W/CONTRAST CT ABDOMEN/PELVIS W/CONTRAST HISTORY: Vomiting and weight loss COMPARISON: None TECHNIQUE: Multiple sequential axial images of the abdomen and pelvis were obtained from the dome of the diaphragm through symphysis pubis. Patient was given 75 cc of Omnipaque through intravenous route. Oral contrast was not given. FINDINGS: No pleural effusion is seen bilaterally. There is no evidence of parenchymal disease or pulmonary nodule of the visualized lower lungs. Degenerative changes of the thoracolumbar spine are present. The heart is not enlarged. Fatty changes of the liver are noted. Liver measures 18 cm. There may be calcified splenic artery aneurysm measuring 4.7 mm. Pancreatic calcifications are seen may be related to chronic pancreatitis. Postcholecystectomy changes are seen. Mild small bowel dilatation is seen. The liver, spleen, adrenal glands are unremarkable. There is no evidence of hydronephrosis bilaterally. No evidence of renal stone is seen. Fecal material is seen in the colon. There are normal size retroperitoneal and mesenteric lymph nodes. No ascites is seen. No CT evidence of acute appendicitis is seen. Pelvic sidewalls are symmetric bilaterally. Bladder is well distended without wall thickening. IMPRESSION: 1. Mild small bowel dilatation with fluid-filled may be related to enteritis. Pancreatic calcifications suggestive of chronic pancreatitis. ED Course Orders Procedure Category Date Status Time Influenza Type A & B, LAB 10/21/24 Complete Rapid 06:32 Covid Rna Naat LAB 10/21/24 Complete 06:32 Chest 1vw RAD 10/21/24 Resulted 06:38 Basic Metabolic Panel LAB 10/21/24 Complete 06:39 Cbc With Differential LAB 10/21/24 Complete 06:39 0.9%Nacl 1000ml (Ns PHA 10/21/24 Complete 1000ml) 07:00 Hepatic Function Panel LAB 10/21/24 Complete 07:10 Lipase LAB 10/21/24 Complete 07:10 Ct Abdomen/Pelvis CT 10/21/24 Resulted W/Contrast 07:10 Insulin Regular, PHA 10/21/24 Complete Human 3ml (Humulin R 08:30 Iohexol (Omnipaque) PHA 10/21/24 Complete 08:51 Current Medications Medications (Trade) Dose Ordered Sig/Kody Route PRN Reason Start Time Stop Time Status Last Admin Dose Admin Insulin Human Regular (humuLIN R 100 UNIT/ML 3ML) 5 unit ONCE ONCE IV 10/21/24 08:30 10/21/24 08:31 DC 10/21/24 08:33 Iohexol (Omnipaque) 75 ml STK-MED ONCE IV 10/21/24 08:51 10/21/24 08:52 DC Sodium Chloride 1,000 ml @ 0 mls/hr ONCE ONCE IV 10/21/24 07:00 10/21/24 07:02 DC 10/21/24 07:08 Vital Signs Date Time Temp Pulse Resp B/P (MAP) Pulse Ox O2 Delivery O2 Flow Rate FiO2 10/21/24 09:22 98.2 62 16 153/47 99 Room Air* 0 21 10/21/24 07:13 98.1 54 18 141/68 100 Room Air* 0 21 10/21/24 06:11 98.4 65 17 35/74 98 Room Air DX & DISP Disposition: Discharge Departure Impression: Primary Impression: Viral illness Additional Impressions: Dehydration, Hyperglycemia Condition: Stable Scripts Ondansetron (Ondansetron Odt) 4 Mg Tab.rapdis 1 TAB PO Q6HPRN PRN for nausea/vomiting for 3 Days, #10 TAB 0 Refills Prov: TAMI PURCELL DO 10/21/24 Additional Instructions: Your symptoms are consistent with a viral syndrome, dehydration, and elevated blood glucose. Your chest x-ray is normal. The CT scan of your abdomen and pelvis shows possible bowel inflammation consistent with a viral illness. There was also some chronic changes to your pancreas that do not appear dangerous at this time. Your blood work (CBC, BMP, liver function tests, lipase) shows elevated blood glucose but is otherwise unremarkable. The flu and COVID swabs were negative. You received IV fluids and IV insulin here in the ER. I have prescribed ondansetron dissolvable tabs to use for nausea and vomiting. You can alternate 650 mg of Tylenol and 600 mg of ibuprofen every 4 hours as needed for pain or discomfort. Do not continue taking the Ozempic. Please follow up with your primary doctor for further treatment and evaluation. Referrals: ANNITA JUAREZ MD (PCP) ROYCE CAMPO MD Oct 21, 2024 06:39 TAMI PURCELL DO Oct 21, 2024 10:00
[2024-10-21 07:01] LABS: SARS-CoV-2, RNA, NAAT NEGATIVE SARS CoV-2 (NEGATIVE)
[2024-10-21 07:06] LABS: INFLUENZA TYPE A Negative For Type A (NEGATIVE); INFLUENZA TYPE B Negative For Type B (NEGATIVE)
[2024-10-21] MEDS: 0.9%NACL 1000ML 1,000 ML IV ONE (07:08)
[2024-10-21 07:30] LABS: BASOPHILS # (AUTO) 0.04 K/uL (0.00-0.20); BASOPHILS % (AUTO) 0.5 % (0.0-5.0); EOSINOPHILS # (AUTO) 0.14 K/uL (0.00-0.70); EOSINOPHILS % (AUTO) 1.7 % (0.0-8.0); HEMATOCRIT 37.1 % (36-48); IMMATURE GRANULOCYTE ABSOLUTE 0.05 K/uL (0-1); LYMPHOCYTES # (AUTO) 1.8 K/uL (1.0-4.8); LYMPHOCYTES % (AUTO) 21.9 % (21.0-51.0); MEAN CORPUSCULAR HEMOGLOBIN 30.7 pg (27.0-33.0); MEAN CORPUSCULAR HGB CONC 32.6 g/dL (32.0-36.0); MEAN CORPUSCULAR VOLUME 94.2 fL (79-99); MONOCYTES # (AUTO) 0.6 K/uL (0.1-1.0); MONOCYTES % (AUTO) 6.8 % (3.0-13.0); NEUTROPHILS # (AUTO) 5.6 K/uL (1.8-7.7); NEUTROPHILS % (AUTO) 68.5 % (40.0-77.0); PLATELET COUNT (AUTO) 217 K/uL (130-400); RED BLOOD CELL COUNT(AUTO) 3.94 MIL/uL (4.00-5.50); RED CELL DISTRIBUTION WIDTH 12.8 % (11.0-15.5); WHITE BLOOD COUNT (AUTO) 8.1 K/uL (4.8-10.8)
[2024-10-21 07:40] LABS: POTASSIUM 4.7 mmol/L (3.5-5.1)
[2024-10-21 07:43] LABS: BILIRUBIN,DIRECT 0.1 mg/dL (0.0-0.3); BILIRUBIN,TOTAL 0.7 mg/dL (0.2-1.0); TOTAL PROTEIN, SERUM 5.8 g/dL (6.0-8.3)
[2024-10-21] MEDS: INSULIN humuLIN R 100 UNIT/ML 3ML IV ONE (08:33)
[2024-10-21] MEDS ORDERED: IOHEXOL-350 75 ML VIAL IV ONE (08:51)
--- NOTE | 2024-10-21 09:07 | HMCIMG ---
CHEST 1VW HISTORY: Cough and congestion COMPARISON: 08/18/2023 FINDINGS: A frontal projection of the chest was obtained. No acute pulmonary infiltrates is seen. The heart is borderline enlarged. Dominant interstitial markings are seen. Degenerative changes are seen. No evidence of aortic calcification is seen. IMPRESSION: 1. No acute pulmonary infiltrate is seen. Prominent interstitial markings.
--- NOTE | 2024-10-21 09:34 | HMCIMG ---
CT ABDOMEN/PELVIS W/CONTRAST HISTORY: Vomiting and weight loss COMPARISON: None TECHNIQUE: Multiple sequential axial images of the abdomen and pelvis were obtained from the dome of the diaphragm through symphysis pubis. Patient was given 75 cc of Omnipaque through intravenous route. Oral contrast was not given. FINDINGS: No pleural effusion is seen bilaterally. There is no evidence of parenchymal disease or pulmonary nodule of the visualized lower lungs. Degenerative changes of the thoracolumbar spine are present. The heart is not enlarged. Fatty changes of the liver are noted. Liver measures 18 cm. There may be calcified splenic artery aneurysm measuring 4.7 mm. Pancreatic calcifications are seen may be related to chronic pancreatitis. Postcholecystectomy changes are seen. Mild small bowel dilatation is seen. The liver, spleen, adrenal glands are unremarkable. There is no evidence of hydronephrosis bilaterally. No evidence of renal stone is seen. Fecal material is seen in the colon. There are normal size retroperitoneal and mesenteric lymph nodes. No ascites is seen. No CT evidence of acute appendicitis is seen. Pelvic sidewalls are symmetric bilaterally. Bladder is well distended without wall thickening. IMPRESSION: 1. Mild small bowel dilatation with fluid-filled may be related to enteritis. Pancreatic calcifications suggestive of chronic pancreatitis. CT was performed with one or more following dose reduction techniques: automated exposure control, adjustment of the mA and kv according to patient's size, or use of a iterative reconstruction technique.
[2024-10-21] MEDS ORDERED: ONDA-243 PO (09:58)
--- NOTE | 2024-10-21 10:58 | NUR ---
PT STABLE NO DISTRESS VITALS WNL NO C/O PAIN NOW, PT GIVEN INSTRUTIONS FOR DISCHARGE VERALIZED UNDERSTANDING, PT IV D/C CATHETER INTACT, PT GIVEN ONE RX IN HAND, PT DRIVEN HOME BY SON.
[2024-10-21 10:59] VITALS: BP 147/63; PULSE 63; RESP 17; TEMP 98; O2SAT 99
== END 2024-10-21 11:00 | disposition home or self-care (01) ==
LOC: EDH 06:10
DX: B34.9 Viral infection, unspecified (principal); E86.0 Dehydration; E11.65 Type 2 diabetes mellitus with hyperglycemia; E66.9 Obesity, unspecified; Z79.84 Long term (current) use of oral hypoglycemic drugs; Z79.899 Other long term (current) drug therapy; Z88.5 Allergy status to narcotic agent; Z90.49 Acquired absence of other specified parts of digestive tract; Z20.822 Contact with and (suspected) exposure to COVID-19
CPT/HCPCS: 99284; 74177; 96374; 71045; 87635; 96361; 80076; 80048; 83690; 85025; 87804 ×2; 36415; J1815; J7030; Q9967